=== PATIENT | male | born 1940 | race Caucasian/White ===

== ENCOUNTER → 2018-05-05 | Outpatient (CLI) | payer OTHER, BC | LOC: BHFA 15:30 | PROVIDERS: ATTEND Internal Medicine Cardiovascular Disease | DX: I48.91 Unspecified atrial fibrillation (principal) ==

== ENCOUNTER → 2018-05-16 | Outpatient (CLI) | payer OTHER, BC ==
[~2018-05-16] MED LIST: REGADENOSON 0.4 MG/5 ML SYR IVP ONE
--- NOTE | 2018-05-16 14:47 | CPR ---
[f rep st] NONINVASIVE CARDIAC PROCEDURE REPORT DATE OF PROCEDURE: 05/16/2018 PROCEDURE: Outpatient Lexiscan nuclear stress test. ORDERED PHYSICIAN: Kerwin Laird MD. REASON FOR TEST: Abnormal EKG with supraventricular bigeminy, right bundle branch block. Resting EKG shows a sinus arrhythmia with supraventricular bigeminy, right bundle branch block, rate 64, resting blood pressure is 120/70, resting oxygen saturation 95%. He is asymptomatic. STRESS PORTION: Lexiscan was injected rapidly, followed by saline flush. Cardiolite was then inject ed, followed by saline flush. Peak heart rate 101, peak blood pressure /62, oxygen saturat ion 97%. He did feel mild shortness of breath. His rhythm appeared junctional after the infusion an d spontaneously returned to a sinus rhythm. He remained otherwise asymptomatic. RECOVERY: He did spontaneously recover. Resting heart rate 76, blood pressure 138/68, oxygen satura tion 96%. He does continue to have a supraventricular bigeminy. At this time, he currently is stable for nuclear imaging. /[id number]/MODL
== END ==
LOC: FIMAGING 12:35
PROVIDERS: ATTEND Internal Medicine Cardiovascular Disease
DX: R94.31 Abnormal electrocardiogram [ECG] [EKG] (principal)
CPT/HCPCS: 78452; A9500; J2785

== ENCOUNTER 2018-06-06 13:06 | Observation (INO) | payer OTHER, BC ==
[2018-06-06] MEDS ORDERED: ceFAZolin 2 GM/DEXTROSE 100 ML IV ONE (13:10)
[2018-06-06] MEDS ORDERED: diphenhydrAMINE 25 MG CAP PO ONE (13:10)
[2018-06-06] MEDS ORDERED: NS 1,000 ML IV ONE (13:10)
[2018-06-06] MEDS ORDERED: DIAZEPAM 5 MG TAB PO ONE (13:10)
[2018-06-06] MEDS ORDERED: BACITRACIN IRRIGATION/NS 50,000 UNITS/1,000 ML BTL IRR ONE (13:10)
[2018-06-06 13:59] LABS: PLATELET COUNT 291 10^3/uL (150-400)
[2018-06-06 14:12] LABS: INR 1.01 (0.83-1.16); PROTIME(PATIENT) 13.5 SEC (12.0-15.0)
--- NOTE | 2018-06-06 14:12 | PDGENHP ---
History & Physical Chief Complaint: Complete heart block History of Present Illness: Several episodes of CHB noted on recent Zio monitor Relevant Physical Exam: General: A&Ox4, no apparent distress. Cardiac: regular rate and rhythm, S1, S2. Respiratory: CTA Cardiorespiratory Assessment: Proceed with implant of permanent pacemaker as planned for today
[2018-06-06] MEDS ORDERED: IOPAMIDOL (ISOVUE-300) 100 ML BTL ONE (14:52)
[2018-06-06] MEDS ORDERED: BUPIVACAINE 0.75% 10 ML SDV ONE (14:52)
[2018-06-06] MEDS ORDERED: LIDOCAINE 1% 300 MG/30 ML SDV ONE (14:52)
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
[2018-06-06] MEDS ORDERED: PROPOFOL/EMULSION 500 MG/50 ML BOTTLE IV ONE (15:06)
[2018-06-06] MEDS ORDERED: fentaNYL 100 MCG/2 ML INJ ONE (15:09)
[2018-06-06] MEDS ORDERED: PROPOFOL 200 MG/20 ML VIAL ONE ×3 (15:10→16:18)
[2018-06-06] MEDS ORDERED: ONDANSETRON 4 MG/2 ML VIAL ONE (15:34)
[2018-06-06] MEDS ORDERED: DEXAMETHASONE 4 MG/ML VIAL ONE ×2 (15:34)
[2018-06-06] MEDS ORDERED: ACETAMINOPHEN 500 MG TAB PO PRN (16:06)
[2018-06-06] MEDS ORDERED: METOCLOPRAMIDE 10 MG/2 ML VIAL IVP PRN (16:06)
[2018-06-06] MEDS ORDERED: oxyCODONE IR 5 MG TAB PO PRN (16:06)
[2018-06-06] MEDS ORDERED: ALBUTEROL 3 ML DEYVIAL IH PRN (16:06)
[2018-06-06] MEDS ORDERED: NALOXONE HCL 0.4 MG/ML INJ IVP PRN (16:06)
[2018-06-06] MEDS ORDERED: PHENYLEPHRINE HCL 100 MCG/ML SYR IVP PRN (16:06)
[2018-06-06] MEDS ORDERED: LABETALOL HCL 5 MG/ML 20 ML MDV IVP PRN (16:06)
[2018-06-06] MEDS ORDERED: NS 500 ML IV PRN (16:06)
[2018-06-06] MEDS ORDERED: PROMETHAZINE HCL 25 MG/ML INJ IVP PRN (16:06)
[2018-06-06] MEDS ORDERED: LR 500 ML IV PRN (16:06)
[2018-06-06] MEDS ORDERED: fentaNYL 100 MCG/2 ML INJ IVP PRN (16:06)
[2018-06-06] MEDS ORDERED: glyBURIDE 2.5 MG TAB PO PRN (17:10)
[2018-06-06] MEDS ORDERED: ONDANSETRON DISINTEGRATING 4 MG TAB PO PRN (17:10)
[2018-06-06] MEDS ORDERED: CLOBETASOL 0.05% 15 GM OINT TUBE TP PRN (17:10)
--- NOTE | 2018-06-06 17:24 | EPPROC ---
Electrophysiology Procedure Note: PROCEDURE PERFORMED: 1. Implantation of an A/V Pacemaker 2. Subclavian vein angiography 3. Fluoroscopy INDICATION: 3rd degree AV block PROCEDURE NOTE: Patient presented to the cardiac catherization laboratory in a fasting, post absorptive state. Dr. Walton administered LMA. The left infraclavicular area was prepped and draped in the usual sterile fashion. Lidocaine plus bupivacaine was used for local anesthesia. Left subclavian venography was performed by injection of iodinated contrast into the left antecubital vein. This was done to assure patency of the vein and also to assess for any anatomical aberrations. Using a combination of blunt and sharp dissection and electrocautery, the dissection was carried down to the prepectoral fascia. A pocket was made in this anatomical plane. All bleeding was controlled with electrocautery. The pocket was packed with gauze soaked in antibiotic solution. Fluoroscopy was utilized during the entire procedure for venous access and placement of the leads. Using a direct stick technique the left extrathoracic axillary vein was accessed with 2 sticks using the modified Seldinger technique. Placement of the guidewires into the venous system was confirmed by low-pressure blood return and also by visualizing the guidewires advancing into the inferior vena cava. A purse string suture was applied around the guidewires. Two #7 Turkish sheaths were advanced under fluoroscopic guidance over the guidewire. An active fixation ventricular lead was advanced into the right ventricular apex and screwed in place. An active fixation atrial lead was advanced into the right atrial appendage and screwed in place, subclavian stick had to be done x2 for atrial lead since once sheath was peeled away J wire could not be advanced. Therefore on 2nd stick, we left sheath in place until lead was screwed in. The peel away sheaths were removed. Pacing thresholds, sensing parameters and lead impedances were measured. There was no diaphragmatic stimulation at maximum output. The leads were sutured to the prepectoral fascia with 3 nonabsorbable sutures each. The pocket was again inspected for any bleeding. The leads were attached to the pacemaker securely. The pacemaker was inserted into the pocket and secured in place with a nonabsorbable suture. Fluoroscopy was performed in LA and GE planes to verify right-sided placement of the leads. Also fluoroscopy of the pacemaker pocket was performed. The pacemaker pocket was closed in 3 layers with absorbable monocryl sutures and linda. Appropriate dressing was applied. The patient left the cardiac catheterization laboratory in stable condition. Serial Numbers: 1. Device: [facility] [id number] 2. Atrial Lead: [facility] [id number] 46 cm [id number] 3. Ventricular Lead: [facility] [id number] 52 cm [id number] Stimulation Thresholds & Impedance Measurements: 1. Atrial Lead P 3.2 mV 552 ohm 0.5 V 0.5 ms 2. Ventricular Lead R 9.7 mV 531 ohm 0.4 V 0.5 ms [place] Pacing Parameters 1. Pacing mode: DDDR (VIP to 400 ms given MI 320 ms) 2. Lower rate: 60 ppm 3. Upper tracking rate: 130 ppm 4. Upper sensor rate: 130 ppm Patient Problems: Problems Problem Status Onset Arthritis of knee, right Acute Cervical stenosis of spine Acute Left arm weakness Acute
[2018-06-06] MEDS: HYDROXYCHLOROQUINE SULFATE 200 MG TAB PO SCH (20:03)
[2018-06-06] MEDS ORDERED: FAMOTIDINE 20 MG TAB PO SCH (21:00)
[2018-06-07 04:38] LABS: PLATELET COUNT 281 10^3/uL (150-400)
[2018-06-07] MEDS ORDERED: LEVOTHYROXINE 75 MCG TAB PO SCH (06:00)
[2018-06-07] MEDS ORDERED: ACETAMINOPHEN 325 MG TAB PO PRN (08:08)
[2018-06-07 08:56] VITALS: BP 132/80
[2018-06-07] MEDS ORDERED: PANTOPRAZOLE SODIUM 40 MG TAB PO SCH (09:00)
[2018-06-07] MEDS ORDERED: FUROSEMIDE 40 MG TAB PO SCH (09:00)
[2018-06-07] MEDS: HYDROXYCHLOROQUINE SULFATE 200 MG TAB PO SCH (09:36)
[2018-06-07] MEDS ORDERED: ASPIRIN EC 81 MG TAB PO SCH (12:00)
[2018-06-07] MEDS ORDERED: MONTELUKAST SODIUM 10 MG TAB PO SCH (16:00)
--- NOTE | 2018-06-07 18:14 | GDS ---
[f rep st] DISCHARGE SUMMARY ADMISSION DIAGNOSIS: Third-degree AV block DISCHARGE DIAGNOSIS: Third-degree AV block status post implantation of a dual- chamber permanent pacemaker. PROCEDURES PERFORMED DURING HOSPITALIZATION: 1. Implantation of a dual-chamber permanent pacemaker. 2. Subclavian vein angiography. 3. Chest x-ray. 4. Electrocardiogram. HOSPITAL COURSE: Patient presented 06/06/2018 for implantation of a dual- chamber permanent pacemaker in the setting of several episodes of third-degree AV block noted on recent Zio monitor accompanied by increasing fatigue. The patient underwent successful implantation of an AV permanent pacemaker with Dr. Kerwin Laird without any intraprocedure complications. He has done very well overnight without any issues, and he has been up ambulating around his room this morning. He is appropriate and stable for discharge home today. PHYSICAL EXAMINATION: GENERAL: He is alert and oriented x4, no apparent distress. VITAL SIGNS: Blood pressure 132/80, heart rate 68, respiratory rate 18, SpO2 of 93% on room air, temp 36.5 degrees Celsius. RESPIRATORY: Lungs are clear to auscultation. No adventitious breath sounds. CARDIAC: Normal S1 , S2. No S3 or S4. Rhythm is regular. He has had frequent PACs on telemetry overnight. ABDOMEN: Normoactive bowel sounds times all 4 quadrants. No masses or tenderness. Soft to palpation. SKIN: [place], warm, dry without cyanosis, clubbing, or peripheral edema. Left pectoral incision with a clean and dry dressing in place without evidence of hematoma or oozing. LABORATORY STUDIES: Drawn today. CBC and BMP are stable compared to preprocedure. PROCEDURES: Permanent pacemaker implant as mentioned above. Chest x-ray this morning demonstrates stable lead positioning. Device interrogation this morning demonstrates normal device function without changes to impedance or threshold overnight. Electrocardiogram this morning demonstrates normal sinus rhythm. DISCHARGE DISPOSITION: The patient will be discharged home in stable condition. He is under activity instructions as below. DISCHARGE MEDICATIONS: Please see discharge medication reconciliation sheet for full details. Please note that there have been no medication changes made this hospitalization. DISCHARGE INSTRUCTIONS: Post pacemaker implant instructions reviewed with patient and in detail. 1. He understands that he may not lift his left arm above the level of his shoulder for the next 6 weeks and that he may not lift more than 10 pounds during the same timeframe. 2. He will continue to monitor his left pectoral incision for signs of infection or oozing. 3. He will present to clinic in 1 week for a wound check and to have his linda removed. 4. He understands that he must monitor his pacemaker incision and pocket for signs of infection throughout his lifetime. 5. He will follow up with Dr. Laird in 3-4 weeks, sooner for any new or concerning symptoms. Time spent on discharge greater than 30 minutes. /[id number]/MODL MTDD
--- NOTE | 2018-06-10 22:07 | POSTANESTH ---
Post Anesthetic Evaluation Cardiovascular Status: Normal, Stable Respiratory Status: Normal, Stable Level of Consciousness/Mental Status: Can Participate in Eval Pain Control: Adequate, Prn Tx Ordered Nausea/Vomiting Control: Adequate, Prn Tx Ordered Complications Possibly Related to Anesthesia: None Noted (for surgery on 06/06/18 )
== END 2018-06-07 12:17 | disposition home or self-care (01) ==
LOC: FCATH 13:06 → F2W 16:58
PROVIDERS: ADMIT Internal Medicine Cardiovascular Disease; ATTEND Internal Medicine Cardiovascular Disease
DX: I44.2 Atrioventricular block, complete (principal); R53.83 Other fatigue; I47.1 Supraventricular tachycardia; E11.51 Type 2 diabetes mellitus with diabetic peripheral angiopathy without gangrene; I73.9 Peripheral vascular disease, unspecified; E03.9 Hypothyroidism, unspecified; I10 Essential (primary) hypertension; Z79.84 Long term (current) use of oral hypoglycemic drugs; Z85.820 Personal history of malignant melanoma of skin; Z96.641 Presence of right artificial hip joint; Z96.653 Presence of artificial knee joint, bilateral; Z96.611 Presence of right artificial shoulder joint; Z96.612 Presence of left artificial shoulder joint; Z88.0 Allergy status to penicillin; Z98.1 Arthrodesis status
CPT/HCPCS: 33208; 71045; 71046; C1785; C1898; J0690; J1100; J2405; J2704; J3010; Q9967

== ENCOUNTER → 2018-07-01 | Day surgery (SDC) | payer OTHER, BC ==
[~2018-07-01] MED LIST changes: +ASPIRIN EC 325 MG TAB PO ONE; +ATROPINE SULFATE 1 MG/10 ML SYR IVP PRN; +DIAZEPAM 5 MG TAB ONE; +DIAZEPAM 5 MG TAB PO ONE; +FAMOTIDINE 20 MG TAB ONE; +FAMOTIDINE 20 MG TAB PO ONE; +HEPARIN 10,000 UNIT/10 ML MDV (1,000 UNIT/ML) ONE; +IOPAMIDOL (ISOVUE-370) 150 ML BTL IV ONE; +LIDOCAINE 1% 300 MG/30 ML SDV ONE; +MIDAZOLAM 2 MG/2 ML VIAL ONE; +NS 1,000 ML IV ONE; -REGADENOSON 0.4 MG/5 ML SYR IVP ONE; +VERAPAMIL 5 MG/2 ML VIAL ONE; +diphenhydrAMINE 25 MG CAP PO ONE; +fentaNYL 100 MCG/2 ML INJ ONE
[2018-07-01 09:42] LABS: PLATELET COUNT 231 10^3/uL (150-400)
[2018-07-01 09:54] LABS: INR 1.08 (0.83-1.16); PROTIME(PATIENT) 13.6 SEC (12.0-15.0)
--- NOTE | 2018-07-01 12:00 | ECHO ---
[email or web address] [address] Main: [phone] Echocardiography Examination Transthoracic Name: SALVADOR BALLARD MR#: [id number] Study Date: 07/01/2018 Study Time: 10:16 AM Date of : 1940 Age: 77 year(s) Height: 167.6 cm (66 in.) Weight: 94.35 kg (208 lb.) BSA: 2.03 m2 Gender: Male Examination: Echo Contrast: Image Quality: Technically Difficult Rhythm: Heart Rate: BP: / Indication: Eval LV function pre cath Procedure Staff Referring Physician: Lumber Straightened: Brittney Valdez RDCS Reading Physician: Navneet Lloyd MD Requesting Provider: Indication: Eval LV function pre cath Measurements Chambers AV/MV Label Value Normal Value Label Value Normal Value EF lower range (%) 50 % AV PGmean 5 mmHg EF upper range (%) 60 % AV Vmax 1.46 m/s IVSd, 2D 1.2 cm (0.6cm - 1.1cm) MV A Vmax 1.08 m/s LVDd, 2D 5 cm (4.2cm - 5.9cm) MV E' lateral 0.05 m/s LVPWd, 2D 1.1 cm (0.6cm - 1cm) MV E' mean 0.06 m/s LADs, 2D 4.1 cm (3cm - 4cm) MV E' septal 0.07 m/s Additional Vessels MV E Vmax 0.73 m/s Label Value Normal Value MV E/A 0.68 AoAsc 3.4 cm MV E/E' lateral 13.3 AoRoot, MM 3.7 cm (2.2cm - 3.7cm) MV E/E' mean 12.17 MV E/E' septal 9.8 (0.45 - 1.25) TV/PV Label Value Normal Value RA Pressure 5 mmHg RVSP 29 mmHg TR Pmax 24 mmHg TR Vmax 2.46 m/s Conclusions Patient: SALVADOR BALLARD Study Date: 07/01/2018 Page 1 of 3 10:16 AM Left Ventricle: CONCLUSIONS:1)Technically limited echo secondary to body habitus.2)Normal LV size and systolic function with an estimated LVEF of 50-60%. The study quality was too limited to comment on specific wall motions.3)Mild concentric LVH with mild diastolic dysfunction noted.4)Mild left atrial enlargement noted.5)Pacer wires noted in right heart chambers.6)Mild MR without MV prolapse.7)Mild TR with estimated normal PA pressures.8)Prominent pericardial fat pad with no pericardial effusion or tamponade. Findings Left Ventricle: Left ventricle is normal in size. CONCLUSIONS: 1)Technically limited echo secondary to body habitus. 2)Normal LV size and systolic function with an estimated LVEF of 50-60%. The study quality was too limited to comment on specific wall motions. 3)Mild concentric LVH with mild diastolic dysfunction noted. 4)Mild left atrial enlargement noted. 5)Pacer wires noted in right heart chambers. 6)Mild MR without MV prolapse. 7)Mild TR with estimated normal PA pressures. 8)Prominent pericardial fat pad with no pericardial effusion or tamponade. EF range is estimated at 50 % - 60 %. There is mild concentric left ventricular hypertrophy. This study is inadequate for the evaluation of regional wall motion. Grade I Diastolic Dysfunction. IVS: The septum is intact. Right Ventricle: Normal size right ventricle. Right ventricular wall thickness is normal. Right ventricular systolic function is normal. There is a pacing wire present in the right ventricle. Left Atrium: The left atrium is mildly dilated. IAS: Normal appearing atrial septum. Right Atrium: The right atrium is normal in size. Mitral Valve: Mild mitral regurgitation. No mitral valve stenosis. There is mild mitral annular calcification. Aortic Valve: Aortic leaflets exhibit normal cuspal separation. No aortic valve regurgitation. There is no aortic stenosis. Tricuspid Valve: Tricuspid valve leaflets are normal in appearance and function. Mild tricuspid regurgitation. No tricuspid valve stenosis. Right Ventricular systolic pressure is measured at 29 mmHg. Pulmonary artery pressure normal. Pulmonic Valve: Pulmonic valve is poorly visualized. Pulmonic leaflets exhibit normal cuspal separation. No pulmonic valve regurgitation is evident. There is no pulmonic valve stenosis. Aorta: The aorta is normal. The aortic root size in M-mode measures 3.7 cm. The ascending aorta measures 3.4 cm. Aorta Measurements AoRoot, MM is 3.7 cm. IVC: The inferior vena cava is normal in size and course. Pericardium: A pericardial fat pad is present. No pericardial effusion. No pleural effusion present. Exam Details Patient: SALVADOR BALLARD Study Date: 07/01/2018 Page 2 of 3 10:16 AM Procedure Ordered: Echo Procedure Status: Routine study Image Quality: Technically Difficult Facility Location: Cardiac Echo 1 (No Signature Object) Patient: SALVADOR BALLARD Study Date: 07/01/2018 Page 3 of 3 10:16 AM [id number]
--- NOTE | 2018-07-01 12:11 | PDHPUP ---
History & Physical Update H&P update statement: This history and physical update is based on an assessment of the patient which was completed after admission or registration (within 24 hours), but prior to the surgery/procedure. H&P update: H&P reviewed & patient examined, no change in patient's condition since H&P completed
--- NOTE | 2018-07-01 12:11 | PDPROPOC ---
Sedation Plan of Care Sedation Plan of Care: vital signs stable, mental status noted, patient educated of risks, benefits, alternatives, patient can tolerate sedation ASA Classification: ASA 2 Planned drugs: fentanyl, midazolam Mallampati Score: Class 3 Mallampati Reference Image: Patient passed 3-3-2 rule?: Yes
--- NOTE | 2018-07-07 08:47 | CPEKG ---
Test Reason : OPEN Blood Pressure : / mmHG Vent. Rate : 085 BPM Atrial Rate : 118 BPM P-R Int : 195 ms QRS Dur : 141 ms QT Int : 434 ms P-R-T Axes : 076 -89 078 degrees QTc Int : 517 ms Ventricular-paced complexes Prior ECG with atrial pacing (intermittently) Confirmed by Mello Gross ([id number]) on 07/07/2018 8:47:05 AM Referred By: Ronan Brown Confirmed By:Mello Gross
== END | disposition home or self-care (01) ==
LOC: FCATH 09:00
PROVIDERS: ATTEND Internal Medicine Interventional Cardiology
PROC: B2151ZZ Fluoroscopy of Left Heart using Low Osmolar Contrast (ICD-10-PCS; principal; 2018-07-01)
PROC: B2111ZZ Fluoroscopy of Multiple Coronary Arteries using Low Osmolar Contrast (ICD-10-PCS; principal; 2018-07-01)
PROC: 4A023N7 Measurement of Cardiac Sampling and Pressure, Left Heart, Percutaneous Approach (ICD-10-PCS; principal; 2018-07-01)
DX: I25.119 Atherosclerotic heart disease of native coronary artery with unspecified angina pectoris (principal); I48.92 Unspecified atrial flutter; E11.9 Type 2 diabetes mellitus without complications; K21.9 Gastro-esophageal reflux disease without esophagitis; Z95.0 Presence of cardiac pacemaker; Z96.619 Presence of unspecified artificial shoulder joint
CPT/HCPCS: C1760; J1644; J2250; J3010; Q9967